=== PATIENT | male | born 1985 | race Caucasian/White ===

== ENCOUNTER 2021-02-02 15:40 | Inpatient (IN) | payer OTHER ==
[~2021-02-02] VITALS: Ht 185.4 cm; Wt 127.0 kg
[2021-02-02 15:50] VITALS: BP 164/97
[2021-02-02 16:07] LABS: ABSOLUTE BASOPHILS 0.1 thou/uL (0.0-0.2); ABSOLUTE EOSINOPHILS 0.1 thou/uL (0.0-0.7); ABSOLUTE LYMPHOCYTES 1.7 thou/uL (0.8-5.3); ABSOLUTE MONOCYTES 0.7 thou/uL (0.0-1.2); ABSOLUTE NEUTROPHILS 5.9 thou/uL (1.6-8.1); BASOPHILS 0.9 %; EOSINOPHILS 0.8 %; HEMATOCRIT 40.8 % (42.0-52.0); HEMOGLOBIN 13.9 gm/dL (14.0-18.0); LYMPHOCYTES 20.4 %; MCH 29.2 pg (26.0-34.0); MCHC 34.1 g/dL (28.0-37.0); MCV 85.7 fL (80.0-100.0); MPV 8.5 fl. (7.2-11.1); NUCLEATED RBCS 0 /100WBC; PLATELET COUNT* 242 thou/uL (150-400); POLYS 69.9 %; RBC 4.76 mil/uL (4.50-6.00); RDW-CV 13.9 % (10.5-14.5); WBC 8.5 thou/uL (4.0-11.0)
[2021-02-02 16:18] LABS: CALCIUM 8.9 mg/dL (8.5-10.1); CREATININE 0.8 mg/dL (0.6-1.3); POTASSIUM 3.2 mmol/L (3.5-5.1)
[2021-02-02 16:23] LABS: ALBUMIN 3.1 g/dL (3.4-5.0); TOTAL BILIRUBIN 1.1 mg/dL (<0.1-1.0); TOTAL PROTEIN 9.4 g/dL (6.4-8.2)
[2021-02-02 16:30] LABS: URINE BILIRUBIN 2+ (Negative); URINE BLOOD 1+ (Negative); URINE CLARITY CLEAR; URINE COLOR AMBER; URINE GLUCOSE-RANDOM NEGATIVE (Negative); URINE KETONES 1+ (Negative); URINE LEUKOCYTES-REFLEX NEGATIVE (Negative); URINE NITRITE-REFLEX POSITIVE (Negative); URINE PROTEIN 2+ (Negative); URINE SPECIFIC GRAVITY >= 1.030 (1.005-1.030)
[2021-02-02 16:41] LABS: COARSE GRANULAR CASTS 0-3 Few /LPF (None Seen); FINE GRANULAR CASTS 0-3 Few /LPF (None Seen); ICTOTEST (BILI CONFIRMATORY) Positive (Negative); MUCUS 4-6 Moderate strn/LPF (None Seen); SQUAMOUS 0-3 Few /LPF (0-3); URINE WBC-REFLEX 0-5 Rare /HPF (0-5)
[2021-02-02 16:42] LABS: AMORPHOUS URATES Moderate /LPF (None Seen)
[2021-02-02 19:35] VITALS: BP 120/87
[2021-02-02 20:30] VITALS: BP 136/93
[2021-02-03 04:47] LABS: CALCIUM 8.8 mg/dL (8.5-10.1); CREATININE 0.9 mg/dL (0.6-1.3)
[2021-02-03 04:53] LABS: HEMATOCRIT 37.1 % (42.0-52.0); HEMOGLOBIN 12.6 gm/dL (14.0-18.0); MCH 29.1 pg (26.0-34.0); MCHC 33.9 g/dL (28.0-37.0); MCV 85.8 fL (80.0-100.0); MPV 9.2 fl. (7.2-11.1); RBC 4.32 mil/uL (4.50-6.00); WBC 7.3 thou/uL (4.0-11.0)
[2021-02-03 05:19] LABS: POTASSIUM 2.9 mmol/L (3.5-5.1)
[2021-02-03 08:00] VITALS: BP 129/84
[2021-02-03 09:57] LABS: CALCIUM 8.6 mg/dL (8.5-10.1); CREATININE 0.9 mg/dL (0.6-1.3); POTASSIUM 3.4 mmol/L (3.5-5.1)
[2021-02-03 10:01] LABS: MAGNESIUM 2.5 mg/dL (1.8-2.4); PHOSPHORUS* 4.5 mg/dL (2.5-4.9)
--- NOTE | 2021-02-03 14:13 | EKG ---
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 : 1985 Requested By: Catracho Franco Order Number: [id number] MD: Adelfo Tejeda Measurements Intervals [place] Rate: 111 P: 29 GA: 175 QRS: -24 QRSD: 102 T: 14 QT: 327 QTc: 445 Interpretive Statements Sinus tachycardia Borderline left axis deviation Abnormal R-wave progression, late transition Borderline ST elevation, lateral leads Baseline wander in lead(s) V1,V2,V3,V5 No previous ECG available for comparison Electronically Signed On 02-03-2021 14:13:32 CDT by Adelfo Tejeda [email or web address] <ELECTRONICALLY SIGNED> By: Adelfo Tejeda MD, [facility] 02/03/21 1413 1615 1615 Adelfo Tejeda MD, [facility] /EPI
[2021-02-03 15:51] VITALS: BP 120/74
[2021-02-03 20:30] VITALS: BP 124/83
[2021-02-04 03:06] LABS: GLYCOHEMOGLOBIN (HGB A1C) 8.2 % (4.8-5.6)
[2021-02-04 04:30] LABS: HEMATOCRIT 34.7 % (42.0-52.0); HEMOGLOBIN 11.7 gm/dL (14.0-18.0); MCH 29.1 pg (26.0-34.0); MCHC 33.6 g/dL (28.0-37.0); MCV 86.8 fL (80.0-100.0); MPV 8.8 fl. (7.2-11.1); RDW-CV 13.8 % (10.5-14.5); WBC 6.9 thou/uL (4.0-11.0)
[2021-02-04 05:13] LABS: CALCIUM 8.3 mg/dL (8.5-10.1); CREATININE 0.9 mg/dL (0.6-1.3)
[2021-02-04 08:05] VITALS: BP 123/75
[2021-02-04 16:00] VITALS: BP 120/81
[2021-02-04 19:30] VITALS: BP 120/78
[2021-02-05 04:44] LABS: HEMATOCRIT 34.5 % (42.0-52.0); HEMOGLOBIN 11.5 gm/dL (14.0-18.0); MCH 29.2 pg (26.0-34.0); MCHC 33.2 g/dL (28.0-37.0); MCV 87.9 fL (80.0-100.0); MPV 8.7 fl. (7.2-11.1); RBC 3.93 mil/uL (4.50-6.00); RDW-CV 14.2 % (10.5-14.5); WBC 6.5 thou/uL (4.0-11.0)
[2021-02-05 04:57] LABS: CALCIUM 8.1 mg/dL (8.5-10.1); CREATININE 0.8 mg/dL (0.6-1.3); POTASSIUM 3.4 mmol/L (3.5-5.1)
[2021-02-05] MEDS ORDERED: HYDROCODON-ACE1 EAC7 PO (07:55)
[2021-02-05] MEDS ORDERED: AUGMENTIN 875-1 EACH PO (07:55)
[2021-02-05] MEDS ORDERED: METFORMIN HCL500 M3 PO (07:55)
[2021-02-05 08:05] VITALS: BP 118/73
[2021-02-05] MEDS ORDERED: FLAGYL500 M1 PO (09:55)
[2021-02-05 10:19] VITALS: BP 118/73
== END 2021-02-05 11:25 | disposition home or self-care (01) | DRG 392 ==
LOC: M.ERS 15:40 → M.TBA-ER 17:37 → M.ERS 17:37 → M.ORTHSURG 19:35 → M.ERS 19:35 → M.ORTHSURG 19:45
PROVIDERS: Family Medicine; ADMIT Internal Medicine; ATTEND Internal Medicine
DX: K57.20 Diverticulitis of large intestine with perforation and abscess without bleeding (principal); E87.1 Hypo-osmolality and hyponatremia; N39.0 Urinary tract infection, site not specified; B96.89 Other specified bacterial agents as the cause of diseases classified elsewhere; E66.9 Obesity, unspecified; R74.01 Elevation of levels of liver transaminase levels; E11.65 Type 2 diabetes mellitus with hyperglycemia; Z20.822 Contact with and (suspected) exposure to COVID-19; Z68.36 Body mass index [BMI] 36.0-36.9, adult; Z79.899 Other long term (current) drug therapy